=== PATIENT | female | born 1960 | race Caucasian/White ===

== ENCOUNTER → 2024-02-26 10:21 | Outpatient (REF) | payer OTHER, SELFPAY | LOC: HWRAD 10:21 | PROVIDERS: ATTENDING PHYSICIAN Internal Medicine Rheumatology; FAMILY PHYSICIAN Student in an Organized Health Care Education/Training Program | DX: M81.0 Age-related osteoporosis without current pathological fracture (principal) | CPT/HCPCS: 77080 ==

== ENCOUNTER 2025-03-25 09:34 | Emergency (ER) | payer OTHER, SELFPAY ==
[2025-03-25] VITALS (7 sets, daily range): BP systolic 127–150; BP diastolic 87–97
--- NOTE | 2025-03-25 09:50 | ED.GENMED ---
History of Present Illness
<Abhi Salguero MD - Last Filed: 03/25/25 12:57>
General
Chief Complaint: Chest Pain
Source: patient
Exam Limitations: none
Time Seen by Provider: 03/25/25 09:43
History of Present Illness
History of Present Illness:
65-year-old female 2 episodes of chest pain with some tingling in her left arm. Both occurred while walking her dog. First episode was yesterday afternoon. The second episode was this morning at 7 AM. Still has some minimal symptoms.
Nonpleuritic no shortness of breath. No history of similar episodes. Yesterday's episode lasted for hours. Today's has persisted for hours also although improving
Past History
<Abhi Salguero MD - Last Filed: 03/25/25 12:57>
Past History
ED Past Medical History: Seizures and Psychiatric
ED Past Surgical History: Cholecystectomy, Urological and Other (Frontal lobectomy for seizures)
Phy Exam
<Abhi Salguero MD - Last Filed: 03/25/25 12:57>
Physical Exam
Physical Exam:
GENERAL: Alert and oriented in no apparent distress. Left temporal deformity old
EYE: Orbits normal.
NECK: Supple, no significant adenopathy.
ENT: Pharynx without erythema
CARDIAC: Regular rate and rhythm without any obvious murmurs. Good upper extremity pulses bilaterally
LUNGS: Clear breath sounds,normal
ABDOMEN: Soft, without focal tenderness or distention
NEUROLOGICAL: Alert and oriented , grossly non-focal
SKIN: Warm and dry, no rash or lesion, no discoloration, skin intact.
MUSCULOSKELETAL: No edema,no deformity.Good color
PSYCH: Normal and appropriate interaction.
Course
<Abhi Salguero MD - Last Filed: 03/25/25 12:57>
Orders/Labs/Results
Orders:
Orders
03/25/25 09:34
Electrocardiogram (*1) Urgent
Reason for Study: Chest Pain
EKG- Treatment ONCE
03/25/25 10:05
Cardiac Monitoring- Treatment ONCE
IV Insert/Care/Rem.- Treatment PRN
CR Chest - 2 Views Urgent
Comment:
Reason For Exam: cp
Pulse Ox/cont/shift [RESP] Stat
Quantity: 1
03/25/25 10:14
Basic Metabolic Panel Urgent
Complete Blood Count/With Diff Urgent
Troponin I Urgent
03/25/25 12:49
Electrocardiogram (*1) Stat
Reason for Study: Other
Other Reason for Exam: chest pain
EKG- Treatment ONCE
03/25/25 12:54
Troponin I Urgent
Abnormal Lab Results
03/25/25
10:14
MCH 32.8 H pg
(27.0-31.0)
Chloride 109 H mmol/L
(98-107)
03/25/25 10:14
03/25/25 10:14
Vital Signs
Initial and Last Documented VS:
Initial Vital Signs
Temp Pulse Resp BP Pulse Ox
97.7 F 77 16 146/96 98
03/25/25 09:39 03/25/25 09:39 03/25/25 09:39 03/25/25 09:39 03/25/25 09:39
Last Documented Vital Signs
Temp Pulse Resp BP Pulse Ox
97.7 F 74 13 131/89 98
03/25/25 09:39 03/25/25 14:15 03/25/25 14:15 03/25/25 14:00 03/25/25 14:15
<Triston Anna DO - Last Filed: 03/25/25 14:45>
Orders/Labs/Results
Orders:
Orders
03/25/25 09:34
Electrocardiogram (*1) Urgent
Reason for Study: Chest Pain
EKG- Treatment ONCE
03/25/25 10:05
Cardiac Monitoring- Treatment ONCE
IV Insert/Care/Rem.- Treatment PRN
CR Chest - 2 Views Urgent
Comment:
Reason For Exam: cp
Pulse Ox/cont/shift [RESP] Stat
Quantity: 1
03/25/25 10:14
Basic Metabolic Panel Urgent
Complete Blood Count/With Diff Urgent
Troponin I Urgent
03/25/25 12:49
Electrocardiogram (*1) Stat
Reason for Study: Other
Other Reason for Exam: chest pain
EKG- Treatment ONCE
03/25/25 12:54
Troponin I Urgent
Abnormal Lab Results
03/25/25
10:14
MCH 32.8 H pg
(27.0-31.0)
Chloride 109 H mmol/L
(98-107)
03/25/25 10:14
03/25/25 10:14
Vital Signs
Initial and Last Documented VS:
Initial Vital Signs
Temp Pulse Resp BP Pulse Ox
97.7 F 77 16 146/96 98
03/25/25 09:39 03/25/25 09:39 03/25/25 09:39 03/25/25 09:39 03/25/25 09:39
Last Documented Vital Signs
Temp Pulse Resp BP Pulse Ox
97.7 F 74 13 131/89 98
03/25/25 09:39 03/25/25 14:15 03/25/25 14:15 03/25/25 14:00 03/25/25 14:15
<Abhi Salguero MD - Last Filed: 03/25/25 12:57>
MDM/Problems Addressed
Differential Diagnosis Includes:
Minimal risk factors with only her mom having CAD. Healthy from a cardiac standpoint walks regularly. However patient's history is a exertional chest pressure that recurred yesterday and today. EKG stable. Troponin pending. Will call to
cardiology.
<Abhi Salguero MD - Last Filed: 03/25/25 12:57>
*Pulse Oximetry
SaO2: 98
Oxygen Mode of Delivery: Room air
Patient hypoxic: no
*EKG
Interpretation: normal
Comparison EKG: no comparison EKG present
Heart Rate: 72
Rate: normal
Rhythm: sinus
Alcalde: normal axis
Interval: normal interval
QRS Pattern: normal QRS
Ischemia: no ischemia
<Abhi Salguero MD - Last Filed: 03/25/25 12:57>
Update Note
Update Note:
Repeat EKG normal sinus rhythm no acute changes. Patient awaiting cardiology evaluation. Clinically stable. Relatively low suspicion for cardiac however patient is describing exertional symptoms the last 2 days.
<Triston Anna DO - Last Filed: 03/25/25 14:45>
Update Note
Update Note:
Repeat EKG normal sinus rhythm no acute changes. Patient awaiting cardiology evaluation. Clinically stable. Relatively low suspicion for cardiac however patient is describing exertional symptoms the last 2 days.
Pt seen by cardiology. They suspect a component of bronchospasm. Suggest discharge w prescription for albuterol MDI and they will arrange for outpatient testing
ED Attending Note
<Abhi Salguero MD - Last Filed: 03/25/25 12:57>
-
Portions of this chart may have been created with voice recognition software.� Occasional wrong word or��sound alike� substitutions may have occurred due to the inherent limitations of voice recognition software.
Discharge Plan
Departure
Patient Disposition: Home (Routine Discharge)
Date of Disposition: 03/25/25
Time of Disposition: 14:43
Patient with high blood pressure during this ER visit?: Yes
Discharge Problem:
Chest pain, Acute bronchospasm
Instructions: Wheezing in adults - ED (DC), Chest Pain CBC Follow Up
Prescriptions:
New
albuterol sulfate [Ventolin HFA] 90 mcg/actuation HFA aerosol inhaler
2 puff inhalation Q6H PRN (Reason: shortness of breath or wheezing) Qty: 8.5 0RF
Referrals:
Meri Leslie MD [Active, Cardiology]
Interventions
Interventions:
*Risk Screen - Suicide Last Done: 03/25/25 09:39
*General Assessment Last Done: 03/25/25 10:05
*Neglect/Abuse Screening Last Done: 03/25/25 09:39
*ED- Fall Risk Assessment Last Done: 03/25/25 10:05
*ED COVID-19 Vaccine History Last Done: 03/25/25 10:05
ED- Cardiac Assessment Last Done: 03/25/25 10:05
Discharge Date and Time
Print Language: STATELESS
[2025-03-25 10:28] LABS: Hematocrit 45.0 % (37.0-47.0); Hemoglobin 15.1 g/dL (12.0-16.0); Mean Corp Hgb Conc. 33.6 g/dL (33.0-37.0); Mean Corpuscular Volume 97.8 fL (81.0-99.0); Nucleated Red Blood Cells % 0 %; Platelet Count 201 10^3/uL (130-400); Red Cell Dist. Width 12.4 % (11.5-14.5)
[2025-03-25 10:43] LABS: Blood Urea Nitrogen 9 mg/dl (7-17); Calcium 9.4 mg/dl (8.4-10.2); Carbon Dioxide 27 mmol/L (22-30); Chloride 109 mmol/L (98-107); Glucose 81 mg/dl (70-99); Potassium 3.7 mmol/L (3.5-5.1); Sodium 141 mmol/L (135-145); eGFR > 60.00
[2025-03-25 10:54] LABS: Troponin I < 0.012 ng/ml
--- NOTE | 2025-03-25 13:14 | CON.CAR ---
Addendum entered and electronically signed by Meri Leslie MD 03/25/25 15:04:
I saw and evaluated the patient, and I provided the substantive portion of the medical decision making.
I reviewed and agree with the note by Indigo Ortiz. 25 and it accurately reflects our care.
I personally performed the medical decision making of the this encounter and my assessment and plan is below:
SHe reports she has been struggling with allergies and has been coughing more than usual. She has been doing her typical daily walk of 5-6 miles and then comes home for the last two days having cp that is worse with cough feels like a tightness and
is associated with a wheeze.
rrr no m/r/g, lungs with expiratory wheeze, no le edema, tenderness along the mid left chest wall and sternum.
ecgs nsr
trop neg x2
Overall i think her cp is due to cough in the setting of RAD. I would start with proair inhaler prior to exercise. I offered reassurance. Given concern with exercise can arrange outpt ETT. Heart score is a 1--low risk. Ok to d/c home.
Original Note:
Consultation
Consultation Request
Date/Time Consultation Requested: 03/25/25 1123
Date/Time Consultation Performed: 03/25/25 1300
Requesting Provider: Dr. Salguero
Performing Provider: Indigo PINZON for Dr. Leslie
Reason for Consultation: chest discomfort
Medical History
-
Chief Complaint: chest discomfort
History of Present Illness:
65 y/o female with hx epilepsy with history of brain surgery and on meds and depression who is here for evaluation of chest discomfort. Briefly, yesterday around 2 PM, after her daily 5-6 mile walk, she developed left-sided chest discomfort (sharp
like dagger, as well as pressure) with radiation down the left arm with tingling. It lasted about 20 minutes. She was tired and took a long nap. Then, this AM around 8 AM (after walking her dogs) she again noted this left-sided chest discomfort. It
lasted about 20 minutes. She called her PCP office and ER evaluation was recommended. She is in no distress at the time of my assessment. There is some tenderness to palpation. First EKG and troponin unremarkable.
Past Medical History
Past Medical History: Seizures and Psychiatric (depression)
Social History
Tobacco: Non-Smoker
Alcohol: None
Family History
Family History: Early CAD (grandmother [place] in her 50's), CAD (mother stent in her 70's) and Other (dad pacemaker)
Allergies / Home Medications
Allergy/AdvReac Type Severity Reaction Status Date / Time
gabapentin (From Neurontin) Allergy Unknown Verified 03/25/25 09:42
Penicillins Allergy Unknown Verified 03/25/25 09:42
procaine (From Novocain) Allergy Unknown Verified 03/25/25 09:42
sz meds Allergy Unknown Uncoded 03/25/25 09:42
Med rec not done but patient tells me she takes dailykeppra, buspirone, lexapro, and zonisamide. Dosing unknown.
Review of Systems
-
History Source: Patient
All other systems: Negative unless noted
Cardiac: Chest Pain (radiation to left arm)
Physical Exam
Vital Signs
Temp Pulse Resp BP Pulse Ox
97.7 F 73 15 141/96 98
03/25/25 09:39 03/25/25 13:00 03/25/25 13:00 03/25/25 13:00 03/25/25 13:00
Lab Results
03/25/25 10:14
03/25/25 10:14
Troponin I < 0.012 ng/ml 03/25/25 10:14
Physical Exam
General: Well Developed and No Apparent Distress
HEENT: Normocephalic and Anicteric
Cardiac: Regular Rhythm
Musculoskeletal: No Edema
Skin: Warm and Dry
Neuro: AO x 3
Psych: Calm
Impression / Plan
-
Chest discomfort:
-as described in detail above- some typical and atypical features
-first trop and EKG normal. Await next and if normal, plan for OP stress test and follow-up, though we reviewed s/s that would be concerning and require return to ER.
Epilepsy:
-hx surgery
-on medical therapy
Data Reviewed
-
EKG: Tracing Personally Visualized and interpreted (NSR 72 BPM)
Radiology: Report Reviewed by me (CXR: No acute cardiopulmonary process.)
Labs: Labs Reviewed by me
[2025-03-25 13:27] LABS: Troponin I < 0.012 ng/ml
== END 2025-03-25 15:02 | disposition home or self-care (01) ==
LOC: EMR 09:34
PROVIDERS: EMERGENCY PHYSICIAN Emergency Medicine; FAMILY PHYSICIAN Student in an Organized Health Care Education/Training Program
DX: R07.89 Other chest pain (principal); J98.01 Acute bronchospasm; R20.2 Paresthesia of skin; G40.909 Epilepsy, unspecified, not intractable, without status epilepticus
CPT/HCPCS: 99285; 71046; 80048; 84484; 85025; 93005

== ENCOUNTER → 2025-04-02 14:16 | Outpatient (REF) | payer OTHER, SELFPAY | LOC: RCS 14:16 | PROVIDERS: ATTENDING PHYSICIAN Internal Medicine Cardiovascular Disease; FAMILY PHYSICIAN Student in an Organized Health Care Education/Training Program | DX: R07.89 Other chest pain (principal) | CPT/HCPCS: 93017 ==

== ENCOUNTER 2025-07-26 11:55 | Emergency (ER) | payer OTHER, SELFPAY ==
[2025-07-26 11:59] VITALS: BP 161/103
[2025-07-26] MEDS: TYLENOL 1000 MG PO (13:13)
--- NOTE | 2025-07-26 13:27 | ED.GENMED ---
History of Present Illness
<Shabbir Li PA-C - Last Filed: 07/26/25 14:29>
General
Chief Complaint: Head Injury
Source: patient
Time Seen by Provider: 07/26/25 13:04
History of Present Illness
History of Present Illness:
65-year-old female with past medical history of seizure disorder status post left temporal skull surgery, migraine disorder (patient states since her surgery migraines have significantly diminished), anxiety presenting to the emergency department
for evaluation after she had an accidental slip and fall yesterday noting she fell down directly onto her buttock but then the back of her head hit the ground, went to her primary care provider today due to some headache and generally feeling
lightheaded but was directed to the ER for dedicated neuroimaging. Patient also notes that when attempting to look leftward she gets increased pain on the left side of her head. Denies any blurred vision or double vision. She is not on any
anticoagulant medications.
Past History
<Shabbir Li PA-C - Last Filed: 07/26/25 14:29>
Past History
ED Past Medical History: Seizures and Psychiatric
ED Past Surgical History: Brain, Cholecystectomy, Urological and Other (Frontal lobectomy for seizures)
Social History
Tobacco: Non-smoker
Alcohol: None
Drug: None
Personal:
Living: with family
Review of Systems
<Shabbir Li PA-C - Last Filed: 07/26/25 14:29>
Review of Systems
All Other Systems: ROS reviewed and negative except as documented in HPI and ROS
Phy Exam
<Shabbir Li PA-C - Last Filed: 07/26/25 14:29>
Physical Exam
Physical Exam:
GENERAL: Alert , in no apparent distress
EYE: conjunctiva clear, patient is able to look rightward and inferiorly without pain but when attempting to look laterally or superolaterally she does experience pain to the left temporal region, pupils 4 mm bilateral
Head: Normocephalic atraumatic, lobectomy on the frontotemporal region noted
NECK: Supple, no midline tenderness
ENT: mmm.
LUNGS: no acute respiratory distress
NEUROLOGICAL: Alert and oriented
SKIN: Warm and dry, skin intact.
MUSCULOSKELETAL: well perfused.
PSYCH: Normal and appropriate interaction.
Scores
<Shabbir Li PA-C - Last Filed: 07/26/25 14:29>
Heart Failure Risk
Heart Failure Risk Score: Not Applicable
Heart Score for Chest Pain Patients
STEMI patient?: Not applicable
Withdrawal Assessment of Alcohol
Withdrawal Assessment Completed?: Not applicable
Course
<Shabbir Li PA-C - Last Filed: 07/26/25 14:29>
Orders/Labs/Results
Orders:
Orders
07/26/25 13:09
CT Head W/o Iv Contrast Urgent
Comment:
Reason For Exam: fall, head injury, hx temporal bone surgery
07/26/25 13:10
Acetaminophen [Tylenol] 1,000 mg PO NOW STA
07/26/25 13:20
CT Facial Bones W/o Iv Contras Urgent
Comment:
Reason For Exam: fall,temporal bone surgery, pain looking laterally
Vital Signs
Initial and Last Documented VS:
Initial Vital Signs
Temp Pulse Resp BP Pulse Ox
97.9 F 85 20 161/103 99
07/26/25 11:59 07/26/25 11:59 07/26/25 11:59 07/26/25 11:59 07/26/25 11:59
Last Documented Vital Signs
Temp Pulse Resp BP Pulse Ox
97.9 F 72 18 141/80 100
07/26/25 11:59 07/26/25 15:23 07/26/25 15:23 07/26/25 15:23 07/26/25 15:23
<Chavo Carney PA-C - Last Filed: 07/26/25 17:40>
Orders/Labs/Results
Orders:
Orders
07/26/25 13:09
CT Head W/o Iv Contrast Urgent
Comment:
Reason For Exam: fall, head injury, hx temporal bone surgery
07/26/25 13:10
Acetaminophen [Tylenol] 1,000 mg PO NOW STA
07/26/25 13:20
CT Facial Bones W/o Iv Contras Urgent
Comment:
Reason For Exam: fall,temporal bone surgery, pain looking laterally
Vital Signs
Initial and Last Documented VS:
Initial Vital Signs
Temp Pulse Resp BP Pulse Ox
97.9 F 85 20 161/103 99
07/26/25 11:59 07/26/25 11:59 07/26/25 11:59 07/26/25 11:59 07/26/25 11:59
Last Documented Vital Signs
Temp Pulse Resp BP Pulse Ox
97.9 F 72 18 141/80 100
07/26/25 11:59 07/26/25 15:23 07/26/25 15:23 07/26/25 15:23 07/26/25 15:23
<Shabbir Li PA-C - Last Filed: 07/26/25 14:29>
MDM/Problems Addressed
Differential Diagnosis Includes:
Concussion
Contusion
ICH
EOM entrapment
MDM/Problems Addressed:
65-year-old female presenting to the ER for evaluation at the request of primary care provider for a accidental fall yesterday resulting in head injury. Today with concussive like symptoms, primary care provider concern given patient's neuro
history. Will obtain CT of the head as well as facial bones. Will order Tylenol for headache at patient's request. Disposition pending.
<Shabbir Li PA-C - Last Filed: 07/26/25 14:29>
*Radiology
Radiology exam reviewed: radiology read reviewed
*Pulse Oximetry
SaO2: 99
Oxygen Mode of Delivery: Room air
Patient hypoxic: no
<Chavo Carney PA-C - Last Filed: 07/26/25 17:40>
*Critical Care Note
Total Time (30-74mins, 75-104mins- exclusive of procedures): Not Applicable
<Chavo Carney PA-C - Last Filed: 07/26/25 17:40>
Update Note
Update Note:
Assumed care of pt from Heath Li PA-C pending imaging after head injury. CTH/facial bones normal, d/c in stable condition
ED Attending Note
<Shabbir Li PA-C - Last Filed: 07/26/25 14:29>
-
Portions of this chart may have been created with voice recognition software.� Occasional wrong word or��sound alike� substitutions may have occurred due to the inherent limitations of voice recognition software.
Discharge Plan
Departure
Patient Disposition: Home (Routine Discharge)
Date of Disposition: 07/26/25
Time of Disposition: 15:37
Patient with high blood pressure during this ER visit?: No
Discharge Problem:
Head injury
Instructions: Head Injury in Adults (DC)
Prescriptions:
No Action
albuterol sulfate [Ventolin HFA] 90 mcg/actuation HFA aerosol inhaler
2 puff inhalation Q6H PRN (Reason: shortness of breath or wheezing) Qty: 8.5 0RF
Referrals:
Cindi Jernigan MD [Family Provider, Internal Medicine]
Interventions
Interventions:
*General Assessment Last Done: 07/26/25 11:59
*Neglect/Abuse Screening Last Done: 07/26/25 11:59
*ED COVID-19 Vaccine History Last Done: 07/26/25 13:24
*ED Influenza Vaccine History Last Done: 07/26/25 13:24
[facility] Fall Risk Assessment Tool Last Done: 07/26/25 13:15
*Risk Screen - Suicide (C-SSRS) Last Done: 07/26/25 13:24
*Nursing Disposition Last Done: 07/26/25 15:39
ED- Neurological Assessment Last Done: 07/26/25 13:07
ED-Skin Assessment Last Done: 07/26/25 13:07
Discharge Date and Time
Discharge Date/Time: 07/26/25 15:39
Print Language: VIET[place]ESE
[2025-07-26 15:23] VITALS: BP 141/80
== END 2025-07-26 15:39 | disposition home or self-care (01) ==
LOC: EMR 11:55
PROVIDERS: EMERGENCY PHYSICIAN Emergency Medicine; FAMILY PHYSICIAN Student in an Organized Health Care Education/Training Program
DX: S09.90XA Unspecified injury of head, initial encounter (principal); W01.0XXA Fall on same level from slipping, tripping and stumbling without subsequent striking against object, initial encounter
CPT/HCPCS: 99285; 70450; 70486